=== PATIENT | female | born 1970 | race Caucasian/White ===

== ENCOUNTER 2016-12-07 13:32 | Day surgery (SDC) | payer BC ==
[~2016-12-07 13:32] MED LIST: Lactated Ringers 1,000 ML IV SCH; Midazolam 1 MG/ML 2 ML SDV ONE; Propofol 200 MG/20 ML SDV ONE; Sodium Chloride 0.9% 5 ML Syringe FLUSH PRN; fentaNYL 250 MCG/5 ML SDV ONE
[2016-12-07] MEDS ORDERED: Propofol 200 MG/20 ML SDV ONE (13:35)
[2016-12-07] MEDS ORDERED: Propofol 200 MG/20 ML SDV IV ONE (14:15)
[2016-12-07] MEDS ORDERED: fentaNYL 100 MCG/2 ML SDV IV ONE (14:15)
[2016-12-07] MEDS ORDERED: Midazolam 1 MG/ML 2 ML SDV IV ONE (14:15)
--- NOTE | 2016-12-07 14:17 | PCM.PN ---
- General Info Date of Service: 12/07/16 - Review of Systems Systems Review Comment:: 46 y/o female here for her first colonoscopy. She has been having a change in bowel habits with loose stools. She is medically stable to proceed with no significant recent change in her health status. There has been no recent change in her past history. This patient's uncle had colon cancer. I have discussed the proposed colonoscopy with the patient. Risks such as but not limited to bleeding and GI injury discussed and she agrees to proceed. - Patient Data Vitals - most recent: Last Vital Signs Temp 97 F 12/07/16 13:46 Pulse 96 12/07/16 13:46 Resp 14 12/07/16 13:46 BP 130/83 12/07/16 13:46 Pulse Ox 96 12/07/16 13:46 Weight - most recent: 79.288 kg Lab Results last 24 hrs: Laboratory Results - last 24 hr 12/07/16 Range/Units 13:45 Urine HCG, Qual Negative (NEGATIVE) Med Orders - Current: Current Medications Lactated Ringer's (Ringers, Lactated) 1,000 mls @ 50 mls/hr IV ASDIRECTED KULDEEP Last Admin: 12/07/16 14:11 Dose: 50 mls/hr Sodium Chloride (Syrex Flush) 5 ml FLUSH Q8HR PRN PRN Reason: Keep Vein Open - Problem List Review Problem List Initiated/Reviewed/Updated: Yes - My Orders Last 24 Hours: My Active Orders 12/06/16 Dinner Nothing Per Oral Diet [DIET] 12/07/16 13:30 Patient to Empty Bladder [RC] ASDIRECTED Peripheral IV Care [RC] . DIRECTED Verify Patient Consent Obtain [RC] ASDIRECTED Lactated Ringers [Ringers, Lactated] 1,000 ml IV ASDIRECTED Sodium Chloride 0.9% [Syrex Flush] 5 ml FLUSH Q8HR PRN Peripheral IV Insertion Adult [OM.PC] Routine - Assessment Assessment:: Change in bowel habits - Plan Plan:: Colonoscopy.
--- NOTE | 2016-12-07 14:54 | PCM.OPNOTE ---
- General Post-Op/Procedure Note Date of Surgery/Procedure: 12/07/16 Operative Procedure(s): Colonoscopy with biopsy Findings: Normal appearing colon and terminal ileum Pre Op Diagnosis: Change in bowel habits Post-Op Diagnosis: Normal colon Anesthesia Technique: MAC Primary Surgeon: Jomar Krause Pathology: Biopsies of Terminal ileum and colon Output, Urine Amount: 0 EBL in mLs: 3 Complications: None Condition: Good
[2016-12-07 15:55] VITALS: BP 133/79
--- NOTE | 2016-12-08 01:01 | OR ---
DATE OF SURGERY: 12/07/2016 SURGEON: Jomar Krause MD OPERATING SURGEON: Jomar Krause M.D. PREOPERATIVE DIAGNOSIS: Change in bowel habits. POSTOPERATIVE DIAGNOSIS: Normal colon. OPERATION PERFORMED: Colonoscopy with biopsy. INDICATIONS FOR SURGERY: This 46-year-old female presents with a recent change in her bowel habits with increasing frequency and irregularity of bowel movements. She comes for her first colonoscopy. FINDINGS: The colon appears normal. There were no visible signs of inflammation, polyps, or other abnormalities. Her terminal ileum also appears normal without any visible inflammation. PROCEDURE: The patient was taken to the operating room. She was given intravenous sedation and with her in the left lateral decubitus position, digital rectal exam was performed showing no rectal masses. The Olympus colonoscope was inserted into the rectum. Retroflexed examination of the rectal canal was performed. The scope was then carefully advanced under direct visualization through the entire length of the colon until the cecum was reached. Cecal acquisition was confirmed by noting the normal internal cecal anatomy including the appendiceal orifice and ileocecal valve. The ileocecal valve was cannulated and the terminal ileum was examined. Biopsies of the terminal ileum were taken to evaluate for possible celiac disease. The scope was withdrawn back into the colon and then slowly withdrawn, carefully examining the colonic segments during withdrawal of the scope. Random biopsies were taken throughout the colon to evaluate for any microscopic reasons for her symptoms. After the colon and rectum had been fully examined and with no sign of any complicating process, the scope was removed, and the patient was taken from the operating room in satisfactory condition. ESTIMATED BLOOD LOSS: 2 mL. COMPLICATIONS: None. PROGNOSIS: Good. /[id number]/MODL
== END 2016-12-07 16:25 | disposition home or self-care (01) ==
LOC: KA.SDS 13:32
PROVIDERS: ATTEND Surgery
DX: K31.89 Other diseases of stomach and duodenum (principal); Z88.1 Allergy status to other antibiotic agents; Z88.8 Allergy status to other drugs, medicaments and biological substances; Z79.84 Long term (current) use of oral hypoglycemic drugs; Z79.899 Other long term (current) drug therapy
CPT/HCPCS: 45380; 81025; J2250; J2704; J3010; J7120

== ENCOUNTER 2022-09-18 07:27 | Emergency (ER) | payer BC ==
[2022-09-18 07:54] VITALS: BP 140/90; PULSE 85
[2022-09-18 08:06] LABS: ANION GAP 17.7 mmol/L (5-15)
[2022-09-18] MEDS ORDERED: Sodium Chloride 0.9% 1,000 ML IV ONE (08:27)
[2022-09-18 08:30] LABS: RESPIRATORY SYNCYTIAL VIR NAA NEGATIVE (NEGATIVE)
[2022-09-18 08:31] LABS: CORONAVIRUS COVID-19 NAA NEGATIVE (NEGATIVE)
[2022-09-18 09:25] LABS: HEMOGLOBIN A1C 8.6 % (4.3-5.7)
== END 2022-09-18 10:35 | disposition home or self-care (01) ==
LOC: KA.ED 07:27
DX: J20.9 Acute bronchitis, unspecified (principal); E11.65 Type 2 diabetes mellitus with hyperglycemia; E03.9 Hypothyroidism, unspecified; K21.9 Gastro-esophageal reflux disease without esophagitis; Z88.1 Allergy status to other antibiotic agents; Z88.5 Allergy status to narcotic agent; Z79.899 Other long term (current) drug therapy; Z79.82 Long term (current) use of aspirin; Z20.822 Contact with and (suspected) exposure to COVID-19
CPT/HCPCS: 0241U; 36415; 71046; 80053; 81001; 82947; 83036; 83605; 85025; 96360; 99283; J7030; 99284